=== PATIENT | male | born 1985 | race American Indian/Alaskan Native ===

== ENCOUNTER 2021-04-18 03:23 | Emergency (ER) | payer OTHER ==
[2021-04-18] MEDS ORDERED: ASPIRIN 325 MG TAB PO ONE (04:17)
[2021-04-18] MEDS ORDERED: hydrALAZINE 25 MG TAB PO ONE (04:17)
--- NOTE | 2021-04-18 04:20 | Event Note ---
ED Screening Note Date of service: 04/18/21 Time: 04:18 ED Screening Note: Patient is a 35-year-old -[place] male with a history of poorly controlled hypertension who presents to the ED with complaint of acute onset persistent intermittent right-sided chest pain that radiates to the right lateral area with end palpitations and elevated blood pressure for the last 2 hours. Patient states that he usually takes Benicar 40 mg daily for his blood pressure, and even then the blood pressure remains significantly elevated despite this medication. Patient states that his symptoms have been persistent, intermittent and worse in the last 2 hours. Patient denies dizziness, syncope, nausea and vomiting, diaphoresis, headache, fever, chills, cough, abdominal pain, numbness and tingling or weakness of upper and lower extremities bilaterally. This initial assessment/diagnostic orders/clinical plan/treatment(s) is/are subject to change based on patients health status, clinical progression and re- assessment by fellow clinical providers in the ED. Further treatment and workup at subsequent clinical providers discretion. Patient/guardian urged not to elope from the ED as their condition may be serious if not clinically assessed and managed. Initial orders include: EKG, chest x-ray, CBC, CMP, troponin
[2021-04-18 04:55] LABS: Basophils # (Auto) 0.1 K/mm3 (0.0-0.1); Basophils % (Auto) 1.8 % (0.0-1.8); Eosinophils # (Auto) 0.3 K/mm3 (0.0-0.4); Eosinophils % (Auto) 6.5 % (0.0-4.3); Hematocrit 45.3 % (35.5-45.6); Hemoglobin 15.6 gm/dl (11.8-15.2); Lymphocytes # (Auto) 1.9 K/mm3 (1.2-5.4); Lymphocytes % (Auto) 35.1 % (13.4-35.0); Mean Corpuscular HGB Conc 34 % (32-34); Mean Corpuscular Volume 99 fl (84-94); Monocytes # (Auto) 0.7 K/mm3 (0.0-0.8); Monocytes % (Auto) 12.7 % (0.0-7.3); Platelet Count 234 K/mm3 (140-440); Red Blood Count 4.57 M/mm3 (3.65-5.03); Red Cell Distribution Width 13.2 % (13.2-15.2)
[2021-04-18 05:17] LABS: Alanine Aminotransferase 169 units/L (7-56); BUN/Creatinine Ratio 10; Blood Urea Nitrogen 12 mg/dL (9-20); Calcium 9.2 mg/dL (8.4-10.2); Hemolysis Index 7
--- NOTE | 2021-04-18 06:11 | XRay Report ---
CHEST 1 VIEW 04/18/2021 5:02 AM INDICATION / CLINICAL INFORMATION: chest pain, palpitations, elevated BP. COMPARISON: None available. FINDINGS: SUPPORT DEVICES: None. HEART / MEDIASTINUM: No significant abnormality. LUNGS / PLEURA: No significant pulmonary or pleural abnormality. No pneumothorax. ADDITIONAL FINDINGS: No significant additional findings. IMPRESSION: 1. No acute findings. Signer Name: Guzman Tavera MD Signed: 04/18/2021 6:07 AM Workstation Name: [id number]
[2021-04-18 07:21] VITALS: BP 168/113
--- NOTE | 2021-04-18 09:55 | Electrocardiograph Report ---
[facility] Test Date: 2021-04-18 Test Time: 04:24:53 Pat Name: REJI CASTILLO Department: Room: Gender: M Director Decision Support: RACHEL : 1985 Requested By: SLY TAMEZ Order Number: [id number] Reading MD: Andrei Johnson Measurements Intervals [place] Rate: 101 P: 75 AL: 153 QRS: 76 QRSD: 68 T: -24 QT: 305 QTc: 396 Interpretive Statements Sinus tachycardia Biatrial enlargement No previous ECG available for comparison Electronically Signed On 04-18-2021 9:55:15 EDT by Andrei Johnson
== END 2021-04-18 08:02 ==
LOC: ED 03:23
DX: I10 Essential (primary) hypertension (principal); Z53.21 Procedure and treatment not carried out due to patient leaving prior to being seen by health care provider
CPT/HCPCS: 36415; 71045; 80053; 84484; 85025; 93005